=== PATIENT | male | born 1965 | race Caucasian/White ===

== ENCOUNTER 2016-09-09 08:42 | Emergency (ER) | payer BC, OTHER ==
--- NOTE | 2016-09-09 08:50 | CPEKG ---
Heart Rate: 82 RR Interval: 732 P-R Interval: 180 QRSD Interval: 92 QT Interval: 380 QTC Interval: 444 P [place]: 46 QRS [place]: -23 T Wave [place]: 20 EKG Severity - OTHERWISE NORMAL ECG - EKG Impression: SINUS RHYTHM EKG Impression: BORDERLINE LEFT AXIS DEVIATION Electronically Signed By: Juancarlos Gallegos 09-Sep-2016 15:29:25
[2016-09-09 08:51] VITALS: O2SAT 94
--- NOTE | 2016-09-09 08:59 | EDPHY ---
H & P Stated Complaint: chest pain Time Seen by Provider: 09/09/16 08:53 - Personal History Current Tetanus Diphtheria and Acellular Pertussis (TDAP): No - Medical/Surgical History Hx Asthma: No Hx Chronic Respiratory Disease: No Hx Diabetes: No Hx Cardiac Disease: No Hx Renal Disease: No Hx Cirrhosis: No Hx Alcoholism: No Hx HIV/AIDS: No Hx Splenectomy or Spleen Trauma: No Other PMH: anal fistula, GERD, ATRIAL TACHYCARDIA W/ INTERNAL MONITOR, "blacks out" - Social History Smoking Status: Never smoked Constitutional: Initial Vital Signs Temperature (C) 36.3 C 09/09/16 08:47 Heart Rate 86 09/09/16 08:47 Respiratory Rate 16 09/09/16 08:47 Blood Pressure 161/101 H 09/09/16 08:47 O2 Sat (%) 94 09/09/16 08:47 O2 Delivery Mode Room Air Allergies/Adverse Reactions: No Known Allergies Allergy (Verified 02/27/14 11:38) Home Medications: Medication Instructions Recorded HYDROcodone/APAP 10325 [[place] 1 - 2 each PO Q4-6PRN PRN #20 tab 12/09/15 10/325] Ibuprofen [Motrin] 800 mg PO Q8 #20 tab 12/09/15 Ibuprofen Pm Softgel 09/09/16 Medical Decision Making - Diagnostics Imaging: Imaging Impressions Chest X-Ray 09/09/16 09:05 Impression: No evidence of acute cardiopulmonary abnormality. ED Course/Re-evaluation: CHIEF COMPLAINT: Chest pain HISTORY OF PRESENT ILLNESS: The patient is a 50 y/o male arriving with his complaining of chest pain onset this morning. He has a history of chest pain of unclear etiology with a clean cardiac catheterization [place] [address] Rios. His states he has a history of PACs and PVCs, but no other diagnosed cardiac history. He additionally has a history of GERD and multiple endoscopies by Dr. Perdomo, GI. This morning while sitting at work he felt chest fluttering associated with lightheadedness and flushing. He then developed dull anterior chest pain that radiated into his arm. He had similar symptoms last week a few hours after a blood draw and actually lost consciousness during that episode. He denies abdominal pain, fever, or shortness of breath. He has not been evaluated for esophageal spasms. REVIEW OF SYSTEMS: A 10 point review of systems was performed and is negative with the exception of the elements mentioned in the history of present illness. PHYSICAL EXAM: HR, BP, O2 Sat, RR. Temp noted General Appearance: Alert, well hydrated, appropriate, and non-toxic appearing. Head: Atraumatic without scalp tenderness or obvious injury Eyes: Pupils equal, round, reactive to light and accommodation, EOMI, no trauma , no injection. Nose: Atraumatic, no rhinorrhea, clear. Throat: mucus membranes moist. Neck: Supple, nontender, no lymphadenopathy. Respiratory: No retractions, no distress, no wheezes, and no accessory muscle use. Lungs are clear to auscultation bilaterally. Cardiovascular: Regular rate and rhythm, no murmurs, rubs, or gallops. Good capillary refill all extremities. Gastrointestinal: Abdomen is soft, nontender, non-distended, no masses, no rebound, no guarding, no peritoneal signs. Musculoskeletal: Normal active ROM of all extremities, atraumatic. Neurological: Alert, appropriate, and interactive. Nonfocal neuro exam. Skin: No rashes, good turgor, no nodules on palpation. Past medical history: GERD, chest pain, anal fistula, PACs and PVCs Past surgical history: Clean cardiac cath 04/12/14 - Dr. Rios; multiple endoscopies Family history: noncontributory Social history: Denies drug or alcohol abuse. Nonsmoker. at bedside. Prior medical records reviewed including ED visit 08/14/14 for chest pain and cardiac catheterization 04/12/14, which was clean. DIAGNOSTICS/PROCEDURES/CRITICAL CARE TIME: The 12 lead EKG was interpreted by myself. Sinus rhythm rate 82. See hard copy and/or "tracemaster" electronic copy for interpretation. Chest x-ray. I viewed the images myself on the PACS system. DIFFERENTIAL DIAGNOSIS: The differential diagnosis for the patient's chest pain included but was not limited to esophageal spasms, GERD, myocardial ischemia, pulmonary embolus, chest wall pain, pleural inflammation, and pulmonary infectious causes. MEDICAL DECISION MAKING: This is a 50 y/o male with a history of undiagnosed chest pain in the setting of a clean cardiac catheterization in 2013 presenting with about 1 hour of chest pain. Due to a relatively recent normal cardiac work up, his story is more consistent with esophageal spasms and vasovagal syncope or near syncope than cardiac etiology. His exam is unremarkable. Plan for IV, labs including BNP and troponin, EKG, and chest x-ray. EKG is unremarkable. Chest x-ray is unchanged from previous. Labs including Troponin, BNP are normal. I reassessed patient and discussed these results. His exam remains normal. I recommended discharge with follow up with GI this week for possible esophageal spasms. He is comfortable with this plan. Return precautions given. - Data Points Laboratory Results: Laboratory Results 09/09/16 08:55 09/09/16 08:55 09/09/16 09/09/16 08:55 08:55 WBC 5.76 10^3/uL 10^3/uL (3.80-9.50) RBC 5.12 10^6/uL 10^6/uL (4.40-6.38) Hgb 16.8 g/dL g/dL (13.7-17.5) Hct 48.3 % % (40.0-51.0) MCV 94.3 fL fL (81.5-99.8) MCH 32.8 pg pg (27.9-34.1) MCHC 34.8 g/dL g/dL (32.4-36.7) RDW 12.5 % % (11.5-15.2) Plt Count 165 10^3/uL 10^3/uL (150-400) MPV 9.5 fL fL (8.7-11.7) Neut % (Auto) 55.6 % % (39.3-74.2) Lymph % (Auto) 32.3 % % (15.0-45.0) [place] % (Auto) 8.5 % % (4.5-13.0) Eos % (Auto) 2.6 % % (0.6-7.6) Baso % (Auto) 0.5 % % (0.3-1.7) Nucleat RBC Rel Count 0.0 % % (0.0-0.2) Absolute Neuts (auto) 3.20 10^3/uL 10^3/uL (1.70-6.50) Absolute Lymphs (auto) 1.86 10^3/uL 10^3/uL (1.00-3.00) Absolute Monos (auto) 0.49 10^3/uL 10^3/uL (0.30-0.80) Absolute Eos (auto) 0.15 10^3/uL 10^3/uL (0.03-0.40) Absolute Basos (auto) 0.03 10^3/uL 10^3/uL (0.02-0.10) Absolute Nucleated RBC 0.00 10^3/uL 10^3/uL (0-0.01) Immature Gran % 0.5 % % (0.0-1.1) Immature Gran # 0.03 10^3/uL 10^3/uL (0.00-0.10) Sodium 143 mEq/L mEq/L (134-144) Potassium 3.7 mEq/L mEq/L (3.5-5.2) Chloride 105 mEq/L mEq/L (97-110) Carbon Dioxide 25 mEq/l mEq/l (22-31) Anion Gap 13 mEq/L mEq/L (8-16) BUN 10 mg/dL mg/dL (7-23) Creatinine 0.9 mg/dL mg/dL (0.7-1.3) Estimated GFR > 60 Glucose 155 mg/dL H mg/dL (70-100) Calcium 9.3 mg/dL mg/dL (8.5-10.4) Troponin I < 0.012 ng/mL ng/mL (0-0.034) NT-Pro-B Natriuret Pep 17 pg/mL pg/mL (0-125) Departure - Departure Disposition: Home, Routine, Self-Care Clinical Impression: Esophageal spasm Chest pain Qualifiers: Chest pain type: other chest pain Qualified Code(s): R07.89 - Other chest pain Condition: Good Instructions: Chest Pain (ED), Esophageal Spasm (ED) Additional Instructions: 1. Follow up with your GI doctor or the doctor you have been referred to this week to further investigate esophageal spasms. 2. Return to the ED for severe persistent chest pain, shortness of breath, fainting, or other worsening of condition. Referrals: Frank Lock MD [Medical Doctor] - As per Instructions Report Scribed for: Juancarlos Gallegos Report Scribed by: Shaina Romano Date of Report: 09/09/16 Time of Report: 09:09
[2016-09-09 09:12] LABS: % IMMATURE GRANULYOCYTES 0.5 % (0.0-1.1); ABSOLUTE IMMATURE GRANULOCYTES 0.03 10^3/uL (0.00-0.10); ADD DIFF? NO; ADD MORPH? NO; ADD SCAN? NO; ATYPICAL LYMPHOCYTE FLAG 10 (0-99); FRAGMENT RBC FLAG 0 (0-99); HEMATOCRIT 48.3 % (40.0-51.0); HEMOGLOBIN 16.8 g/dL (13.7-17.5); LEFT SHIFT FLG 0 (0-99); LIPEMIA HEMOLYSIS FLAG 90 (0-99); MEAN CELL HEMOGLOBIN 32.8 pg (27.9-34.1); MEAN CELL HEMOGLOBIN CONCENTR. 34.8 g/dL (32.4-36.7); MEAN CELL VOLUME 94.3 fL (81.5-99.8); MEAN PLATELET VOLUME 9.5 fL (8.7-11.7); PLATELET CLUMPS FLAG 0 (0-99); PLATELET COUNT 165 10^3/uL (150-400); RED BLOOD CELL COUNT 5.12 10^6/uL (4.40-6.38); RED CELL DISTRIBUTION WIDTH 12.5 % (11.5-15.2)
[2016-09-09 09:21] LABS: ANION GAP 13 mEq/L (8-16); CALCIUM 9.3 mg/dL (8.5-10.4); CARBON DIOXIDE 25 mEq/l (22-31); CHLORIDE 105 mEq/L (97-110); CREATININE 0.9 mg/dL (0.7-1.3); GLOMERULAR FILTRATION RATE > 60; GLUCOSE 155 mg/dL (70-100); POTASSIUM 3.7 mEq/L (3.5-5.2); SODIUM 143 mEq/L (134-144)
[2016-09-09 09:33] LABS: TROPONIN I < 0.012 ng/mL (0-0.034)
[2016-09-09 11:34] VITALS: BP 128/79; PULSE 70; RESP 14; TEMP 97.9
== END 2016-09-09 09:56 | disposition home or self-care (01) ==
DX: K22.4 Dyskinesia of esophagus (principal)

== ENCOUNTER 2017-01-23 07:32 | Day surgery (SDC) | payer BC ==
[2017-01-23] MEDS ORDERED: MIDAZOLAM 2 MG/2 ML VIAL ONE (10:07)
[2017-01-23] MEDS ORDERED: LIDOCAINE 1% 300 MG/30 ML SDV ONE (10:12)
[2017-01-23] MEDS ORDERED: fentaNYL 100 MCG/2 ML INJ ONE (10:16)
[2017-01-23] MEDS ORDERED: CEFAZOLIN 1 GM/DEXTROSE/50 ML BAG IV ONE (10:28)
--- NOTE | 2017-01-23 11:20 | CPIP ---
[f rep st] INVASIVE CARDIAC PROCEDURE DATE OF PROCEDURE: 01/23/2017 PROCEDURE: LINQ IQ removal. INDICATION FOR THE IMPLANT: Unexplained syncope in a patient with risk factors for tachy and anibal dysrhythmia. INDICATION FOR REMOVAL: The device is end of life and is no longer able to communicate the patient' s rhythm. The battery on the device is no longer functioning. PROCEDURE IN DETAIL: After informed consent was obtained, n.p.o. status was confirmed, the region o f the left parasternal region was cleaned, prepped and draped in a sterile fashion. Approximately 1 5 cc of 1% lidocaine was utilized for local anesthesia. A #10 blade was used to sharply incise the skin along the old insertion incision line. This was extended by approximately 1/4 inch to give us more room to remove the device. Sharp and blunt dissection were used to identify the LINK IQ device . It was gripped with the forceps and then removed. Local pressure was utilized for hemostasis. T he skin was closed with 4 interrupted shade with excellent wound edge apposition and hemostasis do cumented. The patient tolerated the procedure well without immediate complication. Returned to the post cath recovery unit in good and stable condition. The serial number of the device that was rem pete is [id number]. FINAL IMPRESSION: Successful LINQ IQ removal. /[id number]/MODL
== END 2017-01-23 11:53 | disposition home or self-care (01) ==
LOC: FCATH 07:32
PROVIDERS: ATTEND Internal Medicine Cardiovascular Disease
PROC: 0JPT02Z Removal of Monitoring Device from Trunk Subcutaneous Tissue and Fascia, Open Approach (ICD-10-PCS; principal; 2017-01-23)
DX: Z45.09 Encounter for adjustment and management of other cardiac device (principal); R55 Syncope and collapse; R00.2 Palpitations; R00.1 Bradycardia, unspecified; R00.0 Tachycardia, unspecified
CPT/HCPCS: J0690; J2250; J3010

== ENCOUNTER → 2017-07-08 | Outpatient (CLI) | payer BC | LOC: CIMAGING 09:24 | PROVIDERS: ATTEND Internal Medicine | DX: M43.06 Spondylolysis, lumbar region (principal); M48.061 Spinal stenosis, lumbar region without neurogenic claudication; M15.0 Primary generalized (osteo)arthritis | CPT/HCPCS: 72050-PO; 72100-PO ==

== ENCOUNTER 2017-11-11 14:49 | Emergency (ER) | payer BC ==
--- NOTE | 2017-11-11 22:33 | EDPHY ---
H & P Time Seen by Provider: 11/11/17 15:10 HPI/ROS: CHIEF COMPLAINT: Palpitations HISTORY OF PRESENT ILLNESS: This patient is a 52-year-old male complaining of palpitations. He feels an ectopic beat every 5-10 normal beats. The patient has had a similar sensation in the past and was evaluated by cardiology at that time. These were infrequent , around two per day. He was reassured that this dysrhythmia was benign. For the past two days, the patient has noted increased palpitations. Lately, he has been exercising more and losing weight. He has discontinued caffeine and alcohol consumption. The patient notes he has gone on long bike rides without any difficulty and denies chest pain or dyspnea associated with exertion. Aside from his ectopic beats, the patient currently feels asymptomatic. He denies pain or swelling in his calves. He denies recent illness, cough, cold, or fever , or other associated symptoms. REVIEW OF SYSTEMS: The patient was recently treated with antibiotics for an infection in his nose. A comprehensive 10 point review of systems is otherwise negative aside from these and elements mentioned in the history of present illness. Source: Patient Exam Limitations: No limitations - Medical/Surgical History PMH: Premature atrial contractions. Hx Asthma: No Hx Chronic Respiratory Disease: No Hx Diabetes: No Hx Cardiac Disease: No Hx Renal Disease: No Hx Cirrhosis: No Hx Alcoholism: No Hx HIV/AIDS: No Hx Splenectomy or Spleen Trauma: No Other PMH: anal fistula, GERD, ATRIAL TACHYCARDIA W/ INTERNAL MONITOR, "blacks out" - Social History Smoking Status: Never smoked Additional Social History: . 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 - Physical Exam Exam: General Appearance: Alert, no distress Eyes: Pupils equal and round no pallor or injection ENT, Mouth: Mucous membranes moist Respiratory: There are no retractions, lungs are clear to auscultation Cardiovascular: Regular rate and rhythm Gastrointestinal: Abdomen is soft and nontender, no masses, bowel sounds normal Neurological: A&O, normal motor function, normal sensory exam, normal cranial nerves Skin: Warm and dry, no rashes Musculoskeletal: Neck is supple nontender Extremities: symmetrical, full range of motion Allergies/Adverse Reactions: No Known Allergies Allergy (Verified 02/27/14 11:38) Home Medications: Medication Instructions Recorded Ibuprofen [Motrin] 800 mg PO Q8 #20 tab 12/09/15 Ibuprofen Pm Softgel 09/09/16 Probiotic 01/23/17 Medical Decision Making - Diagnostics EKG Interpretation: Complete interpretation has been separately recorded in the [facility] archive. Summary impression: Sinus rhythm, premature atrial contractions. ED Course/Re-evaluation: This patient is a 52-year-old male complaining of palpitations. Based on monitor /EKG, patient is having PACs every 5-10 beats as he describes. His vitals are within normal limits at this time: BP 124/88, HR 75. His physical exam is unremarkable. EKG shows sinus rhythm with occasional PACs. Patients history and exam are consistent with atrial ectopy. No symptoms worrisome for ischemia. 15:[address] Rios, the patients vascular ultrasound technician. He is comfortable with outpatient follow-up and recommends the patient begin Cardizem 240 XR. 15:35 I reassessed the patient and discussed my conversation with Dr. Rios. Plan to discharge home in good condition with prescription for Cardizem 240 XR. He will follow up outpatient with Dr. Rios. He and his are comfortable with this plan. The patient has been advised to return to the ED immediately for the development of any chest pain or shortness of breath. He is comfortable scheduling a follow-up appointment with Dr. Rios as an outpatient. Differential Diagnosis: Differential diagnosis considered includes atrial fibrillation, PAC's, PVC, SVT , ventricular tachycardia Departure - Departure Disposition: Home, Routine, Self-Care Clinical Impression: Premature atrial contractions Condition: Good Instructions: Diltiazem (By mouth), Premature Atrial Contractions (ED) Additional Instructions: 1. Take Diltiazem as prescribed. 2. Follow up with Dr. Rios this week for further evaluation. 3. Return to the emergency department for fever, chest pain, shortness of breath , or other worsening of condition. Referrals: Bennie Rios MD [Medical Doctor] - As per Instructions Report Scribed for: Derian Wahl Report Scribed by: Tahmina Haas Date of Report: 11/11/17 Time of Report: 22:32
[2017-11-12 06:16] VITALS: BP 119/76
--- NOTE | 2017-11-12 10:45 | CPEKG ---
Heart Rate: 71 RR Interval: 845 P-R Interval: 172 QRSD Interval: 90 QT Interval: 396 QTC Interval: 431 P [place]: 44 QRS [place]: -31 T Wave [place]: 17 EKG Severity - OTHERWISE NORMAL ECG - EKG Impression: SINUS RHYTHM EKG Impression: LEFT AXIS DEVIATION Electronically Signed By: Tyron Garcia 12-Nov-2017 20:30:11
== END 2017-11-11 15:50 | disposition home or self-care (01) ==
DX: I49.1 Atrial premature depolarization (principal)

== ENCOUNTER 2018-05-13 09:35 | Emergency (ER) | payer BC ==
[2018-05-13] MEDS ORDERED: NS 1,000 ML IV ONE (09:58)
--- NOTE | 2018-05-13 10:06 | EDPHY ---
H & P Stated Complaint: R flank pain x 3 wks, "feels like my kidney stones" Time Seen by Provider: 05/13/18 09:56 HPI/ROS: CHIEF COMPLAINT: Right flank pain HISTORY OF PRESENT ILLNESS: The patient is a 52-year-old man with history of kidney stones who comes to the emergency department complaining of intermittent sharp pain to his right flank ever since Thanksgiving. He states that it feels similar to previous stones. No vomiting. No diarrhea. No fever. No hematuria. No trauma. No injury. Severity: Currently moderate Modifying factors: Worsens and improved spontaneously REVIEW OF SYSTEMS: Constitutional: denies: chills, fever, recent illness, recent injury EENTM: denies: blurred vision, double vision, nose congestion Respiratory: denies: cough, shortness of breath Cardiac: denies: chest pain, irregular heart rate, lightheadedness, palpitations Gastrointestinal/Abdominal: denies: abdominal pain, diarrhea, nausea, vomiting, blood streaked stools Genitourinary: denies: dysuria, frequency, hematuria, pain Musculoskeletal: See HPI Skin: denies: lesions, rash, jaundice, bruising Neurological: denies: headache, numbness, paresthesia, tingling, dizziness, weakness Hematologic/Lymphatic: denies: blood clots, easy bleeding, easy bruising Immunologic/allergic: denies: HIV/AIDS, transplant 10 systems reviewed and negative except as noted EXAM: GENERAL: Well-appearing, overweight and in no acute distress. HEAD: Atraumatic, normocephalic. EYES: Pupils equal round and reactive to light, extraocular movements intact, sclera anicteric, conjunctiva are normal. ENT: TMs normal, nares patent, oropharynx clear without exudates. Moist mucous membranes. NECK: Normal range of motion, supple without lymphadenopathy or JVD. LUNGS: Breath sounds clear to auscultation bilaterally and equal. No wheezes rales or rhonchi. HEART: Regular rate and rhythm without murmurs, rubs or gallops. ABDOMEN: Soft, nontender, normoactive bowel sounds. No guarding, no rebound. No masses appreciated. BACK: No CVA tenderness, no spinal tenderness, step-offs or deformities EXTREMITIES: Normal range of motion, no pitting or edema. No clubbing or cyanosis. NEUROLOGICAL: Cranial nerves II through XII grossly intact. Normal speech, normal gait. 5/5 strength, normal movement in all extremities, normal sensation , normal reflexes PSYCH: Normal mood, normal affect. SKIN: Warm, dry, normal turgor, no visible rashes or lesions. Source: Patient Exam Limitations: No limitations - Medical/Surgical History Hx Asthma: No Hx Chronic Respiratory Disease: No Hx Diabetes: No Hx Cardiac Disease: No Hx Renal Disease: No Hx Cirrhosis: No Hx Alcoholism: No Hx HIV/AIDS: No Hx Splenectomy or Spleen Trauma: No Other PMH: anal fistula, GERD, ATRIAL TACHYCARDIA - Family History Significant Family History: No pertinent family hx - Social History Smoking Status: Never smoked Alcohol Use: Sober Drug Use: None Constitutional: Initial Vital Signs Temperature (C) 36.5 C 05/13/18 09:37 Heart Rate 81 05/13/18 09:37 Respiratory Rate 16 05/13/18 09:37 Blood Pressure 132/94 H 05/13/18 09:37 O2 Sat (%) 95 05/13/18 09:37 O2 Delivery Mode Room Air Allergies/Adverse Reactions: No Known Allergies Allergy (Verified 02/27/14 11:38) Home Medications: Medication Instructions Recorded Ibuprofen [Motrin] 800 mg PO Q8 #20 tab 12/09/15 Ibuprofen Pm Softgel 09/09/16 Probiotic 01/23/17 Metaxalone [Skelaxin 800 mg (*)] 800 mg PO TID PRN #12 tab 05/13/18 Medical Decision Making - Diagnostics Imaging: Discussed imaging studies w/ call center coordinator Radiologist ED Course/Re-evaluation: 11:15 a.m. we discussed the patient's lab work and CT results which are reassuring. He may have passed a stone with this or it may be musculoskeletal. He states it does hurt more when he twists to the right. Could be gallstone that he is passing all day does not have any abdominal pain or epigastric pain. No association with food. No pain with deep inspiration. We discussed treatment home with rest and ibuprofen hydration and follow-up in 2 days if his symptoms are not improved significantly. He is understand agree with this plan. Differential Diagnosis: Partial list of the Differential diagnosis considered include but were not limited to; kidney stone, urinary tract infection, muscle strain and although unlikely based on the history and physical exam, I also considered biliary disease, aneurysm, dissection. I discussed these differential diagnoses and the plan with the patient as well as the usual and expected course. The patient understands that the diagnosis is provisional and that in medicine we are not always correct and that further workup is often warranted. Usual and customary warnings were given. All of the patient's questions were answered. The patient was instructed to return to the emergency department should the symptoms at all worsen or return, otherwise to followup with the physician as we discussed. - Data Points Laboratory Results: Laboratory Results 05/13/18 10:10 05/13/18 10:10 Medications Given: Discontinued Medications Sodium Chloride (Ns) 1,000 mls @ 0 mls/hr IV EDNOW ONE; Wide Open PRN Reason: Protocol Stop: 05/13/18 09:59 Last Admin: 05/13/18 10:10 Dose: 1,000 mls Ketorolac Tromethamine (Toradol) 15 mg IVP EDNOW ONE Stop: 05/13/18 11:09 Last Admin: 05/13/18 11:30 Dose: 15 mg Departure - Departure Disposition: Home, Routine, Self-Care Clinical Impression: Acute right flank pain Condition: Fair Instructions: Flank Pain (ED) Referrals: Julia Mendiola MD [Primary Care Provider] - 2-3 days, if not improved Prescriptions: Metaxalone [Skelaxin 800 mg (*)] 800 mg PO TID PRN #12 tab PRN Reason: Spasms
[2018-05-13 10:22] LABS: PLATELET COUNT 192 10^3/uL (150-400)
[2018-05-13 11:06] VITALS: BP 134/82
[2018-05-13] MEDS ORDERED: KETOROLAC 30 MG/1 ML SDV IVP ONE (11:08)
== END 2018-05-13 11:30 | disposition home or self-care (01) ==
DX: R10.31 Right lower quadrant pain (principal); K80.20 Calculus of gallbladder without cholecystitis without obstruction; K76.0 Fatty (change of) liver, not elsewhere classified; E86.9 Volume depletion, unspecified; Z87.442 Personal history of urinary calculi
CPT/HCPCS: 96374; J1885